=== PATIENT | male | born 1950 | race Hispanic/Latino ===

== ENCOUNTER 2020-06-25 06:16 | Day surgery (SDC) | payer OTHER ==
[2020-06-25 07:23] LABS: Basophils % (Auto) 0.6 % (0.0-1.8); Eosinophils # (Auto) 0.2 K/mm3 (0.0-0.4); Eosinophils % (Auto) 3.2 % (0.0-4.3); Hematocrit 44.5 % (35.5-45.6); Hemoglobin 15.3 gm/dl (11.8-15.2); Lymphocytes # (Auto) 1.1 K/mm3 (1.2-5.4); Mean Corpuscular HGB Conc 34 % (32-34); Mean Corpuscular Volume 101 fl (84-94); Monocytes # (Auto) 0.7 K/mm3 (0.0-0.8); Monocytes % (Auto) 12.3 % (0.0-7.3); Platelet Count 301 K/mm3 (140-440); Red Blood Count 4.42 M/mm3 (3.65-5.03); Red Cell Distribution Width 13.4 % (13.2-15.2)
[2020-06-25 07:32] LABS: INR 1.72 (0.87-1.13); Partial Thromboplastin Time 38.8 Sec. (24.2-36.6)
[2020-06-25 07:35] LABS: BUN/Creatinine Ratio 18; Blood Urea Nitrogen 16 mg/dL (9-20); Hemolysis Index 1
[2020-06-25] MEDS ORDERED: HEPARIN/NS 5000 UNIT/500ML 1,000 ML IR ONE ×2 (07:58→09:29)
[2020-06-25] MEDS ORDERED: MIDAZOLAM 2 MG/2 ML INJ ONE (07:59)
[2020-06-25] MEDS ORDERED: SODIUM CHLORIDE 0.9% 500 ML 500 ML IV SCH (08:00)
[2020-06-25] MEDS ORDERED: SODIUM CHLORIDE 0.9% 0 ML ONE (08:10)
[2020-06-25] MEDS ORDERED: HEPARIN/NS 5000 UNIT/500ML 500 ML IR ONE (08:11)
[2020-06-25] MEDS ORDERED: WATER FOR INJ Sterile (PF) 0 ML ONE (08:11)
[2020-06-25] MEDS: fentaNYL 100 MCG/2 ML INJ ONE ×3 (08:46→10:06)
[2020-06-25] MEDS: LIDOCAINE (2%) 20 MG/1 ML VIAL 20 ML MDV INFILTRATI ONE ×4 (08:51→10:15)
[2020-06-25] MEDS ORDERED: CLINDAMYCIN 300 MG/50 mL 300 MG/50 ML BAG IV SCH ×2 (09:00→15:00)
[2020-06-25] MEDS: MIDAZOLAM 5 MG/5 ML INJ MDV IV ONE ×3 (09:13→10:59)
[2020-06-25] MEDS: HEPARIN 10,000 UNITS/10 ML VIAL ONE ×3 (09:16→10:48)
[2020-06-25] MEDS ORDERED: fentaNYL 100 MCG/2 ML INJ ONE (10:05)
[2020-06-25] MEDS ORDERED: KETOROLAC 30 MG/1 ML INJ ONE (11:12)
--- NOTE | 2020-06-25 11:32 | Short Stay Summary ---
Short Stay Documentation Date of service: 06/25/20 - History Principal diagnosis: Bilateral lower extremity DVT left greater than right H&P: obtained from office - Allergies and Medications Current Medications: Allergies bee venom protein (honey bee) Allergy (Severe, Verified 06/25/20 06:58) Anaphylaxis Penicillins Allergy (Severe, Verified 06/25/20 06:57) Angioedema warfarin [From Coumadin] Allergy (Severe, Verified 06/25/20 06:58) Swelling Home Medications Medication Instructions Recorded Confirmed Last Taken Type Clindamycin [Clindamycin CAP] 300 mg PO PRN PRN 06/25/20 06/25/20 04/24/20 His tory Rivaroxaban [Xarelto] 15 mg PO BID 06/25/20 06/25/20 06/25/20 05:30 History 15 mg Active Medications Sodium Chloride (Nacl 0.9% 500 Ml) 500 mls @ 50 mls/hr IV DIRECT SAVANNA Last Admin: 06/25/20 08:16 Dose: 50 mls/hr Documented by: Clindamycin HCl (Cleocin 300 Mg/50 Ml) 300 mg in 50 mls @ 100 mls/hr IV Q6H SAVANNA; Protocol - Brief post op/procedure progress note Date of procedure: 06/25/20 Pre-op diagnosis: Bilateral lower extremity DVT acute on chronic left greater than right with Post-op diagnosis: same Procedure: Bilateral lower extremity venogram, left lower extremity thrombectomy, bilateral lower extremity intravascular ultrasound, bilateral lower extremity venous stent placement Anesthesia: local Surgeon: BEN HATHAWAY Pathology: none Condition: stable - Disposition Condition at discharge: Good Disposition: [id number] TO HOME OR SELFCARE Short Stay Discharge Plan Activity: advance as tolerated Weight Bearing Status: Weight Bear as Tolerated Diet: regular Wound: keep clean and dry, per your surgeon's advice Follow up with: GALEN DAVIES [Other] - 7 Days
--- NOTE | 2020-06-25 11:47 | Operative Report ---
Operative Report Operative Report: Exam: Bilateral lower extremity venogram, left lower extremity thrombectomy, bilateral lower extremity intravascular ultrasound, bilateral lower extremity venoplasty with stent placement Clinical indication: Patient with a history of chronic iliofemoral DVT bilaterally in 2019 with acute on chronic left lower extremity DVT resulting in bilateral lower extremity swelling left greater than right and pain left greater than right Date: 06/25/2020 Procedure: Following an explanation of the risks, benefits and alternatives; written informed consent was obtained. The patient was brought to the angiographic suite and placed in supine position on the examination table. Initial ultrasound evaluation of his legs demonstrated patent femoral veins bilaterally. The patient's bilateral groin and legs were prepped and draped in the usual sterile fashion. 1% lidocaine was used for anesthesia. Under ultrasound guidance, the left proximal femoral vein was cannulated with a 7 cm 18-gauge needle. A 0.035 guidewire was advanced to the level of the inguinal ligament however there was a significant clot burden and the wire would not pass further. The needle was removed and the outer portion of a microsheath placed. Access to the proximal right femoral vein was obtained in a similar fashion. The right femoral vein was noted to be diminutive. A 0.035 guidewire was advanced through the needle on the right into the IVC. The needle was exchanged for a 5 [place] sheath. A Glidewire was then manipulated through the outer portion of the micro sheath placed in the left femoral vein. The guidewire was manipulated into the IVC. The micro sheath was removed and a vertebral catheter advanced over the g uidewire. The vertebral catheter was advanced to the IVC. Contrast is injected to document intravenous positioning. The guidewire was reinserted and the vertebral catheter exchanged for a 5 [place] sheath. Contrast injected through the sheath demonstrates significant thrombus in the proximal femoral vein, common femoral vein and external iliac vein. There is significant stenosis in the distal common iliac vein and proximal external iliac vein on the left. An Omni Flush catheter was advanced through the sheath on the right. The bifurcation was then crossed using the Omni Flush catheter and guidewire. Contrast was injected at multiple locations. The Omni Flush catheter was advanced into the femoral vein on the left. Additional angiography was performed which demonstrates true luminal positioning. Other guidewire was then advanced into the common femoral vein distally. The Omni Flush catheter was removed. The 5 [place] sheath was removed. Initially, a 7 [place] 45 cm sheath was placed however, for additional length a 7 [place] 90 cm sheath was placed with the tip of the sheath in the left proximal femoral vein. A variety of guidewires and catheters were utilized in an attempt to go more distally in the femoral vein however, thrombus at this point is chronic and occlusive. The decision was made therefore to cannulate the posterior tibial vein. The patient's lower leg was prepped and draped in the usual sterile fashion. Additional lidocaine was used for anesthesia. The posterior tibial vein was cannulated using a 7 cm 21-gauge needle. A 0.018 guidewire was advanced proximally. The needle was removed and a microsheath placed. Contrast was injected through the micro sheath following the removal of the wire which demonstrates appropriate positioning. There is extensive collateral formation along the entire lower leg with no apparent drainage of the lower leg into the deep venous system. A 0.035 guidewire was advanced through the micro sheath the micro sheath was then exchanged for a vertebral catheter and the vertebral catheter was used to probe over the guidewire multiple conduits in an attempt to find a pathway to the deep venous system without success. Ultimately, this access was abandoned. With the sheath placed in the common femoral vein from right to left, the guidewire was advanced into the femoral vein as distally as possible. Angiopla sty was performed through the right sheath using a 10 mm balloon in an attempt to macerate some of the chronic thrombus. The sheath was then withdrawn proximally. Both sheaths were then exchanged over the guidewires for 10 [place] sheaths. Contrast injected through the sheath demonstrated a similar appearance of the deep venous system. There is significant narrowing involving the external iliac veins bilaterally of approximately 80 to 90% and significant narrowing of the distal common iliac veins bilaterally of approximately 80 to 90%. Intravascular ultrasound was then performed first through the right sheath followed by the left sheath. This demonstrates 80% stenosis involving the distal common iliac vein on the right and 80% stenosis involving the external iliac vein on the right. On the left, there is a 90% stenosis involving the distal common iliac vein and an additional 80% stenosis involving the proximal left external iliac vein separately. Intravascular ultrasound demonstrates what appears to be chronic thrombus in the external iliac vein and common femoral vein. A decision was made to macerate the thrombus using a 12 mm balloon. Maceration was performed in the external iliac vein and common femoral vein. An 8 [place] guide cath was then used in attempt to scrape some of the chronic thrombus from the wall. The thrombus had a fibrotic appearance on externalization. Some luminal gain was acquired. Given the significant degree of stenosis and symptoms, decision was made to place stents across the lesions. A 16 mm x 160 mm Venovo stent was advanced through the right sheath. A 16 mm x 160 mm Venovo stent was advanced through the left sheath. The stents were deployed in kissing fashion to extend from the common iliac veins and of the external iliac veins bilaterally. On the right, the stent covered both lesions. On the left, the stent covered the proximal lesion in the common iliac vein. An additional 14 mm x 140 mm Venovo stent was advanced through the left sheath and deployed to extend the previously placed stent from the external iliac vein to the bifurcation of femoral vein and profunda. On the left, the stent was seated using a 14 mm balloon. Post venoplasty and stent placement and thrombectomy imaging demonstrated brisk flow from both legs into the IVC. There is reduction of the stenosis and exclusion of the thrombus given its chronicity with residual less than 10% stenosis noted at all locations. At this point, the sheaths were removed and hemostasis achieved using manual compression in both groins and posterior tibial vein. The patient tolerated the procedure well. There were no immediate post procedure complications. Conscious sedation was performed under the guidance of radiologic nursing. Continuous cardiopulmonary monitoring was utilized. Impression: 1) Bilateral lower extremity venogram demonstrating extensive chronic and a minimal amount of acute thrombus involving the left external iliac vein distally. Prior to imaging, there is brisk clearance of contrast from the left lower extremity as well as the right. There are high-grade stenoses involving the distal common iliac vein and separate high-grade stenoses involving the proximal external iliac vein bilaterally. 2) Maceration of the thrombus and thrombectomy using a guide cath to remove some of the chronic thrombus on the left in the external iliac vein and common femoral vein. 3) Intravascular ultrasound of the IVC, bilateral common iliac veins, bilateral external iliac veins, bilateral common femoral veins demonstrating 80% stenosis involving the distal right common iliac vein, 80% stenosis involving the right external iliac vein, 90% stenosis involving the distal left common iliac vein and a separate 80% stenosis involving the proximal left external iliac vein. Additionally, chronic thrombus was noted in the external iliac vein and common femoral vein on the left. 4) Treatment of the stenosis and exclusion of the thrombus with placement of kissing 16 mm x 160 mm stents extending from the IVC into the external iliac veins bilaterally with elongation of the stent on the left to extend from the external iliac vein into the common femoral vein. Residual less than 10% stenosis and brisk flow on both sides. Given the abnormalities of the external iliac vein and common iliac veins and the close approximation of the arterial system, patient may benefit from a CTA of the abdomen and pelvis.
[2020-06-25 13:38] VITALS: BP 143/80
== END 2020-06-25 14:10 | disposition home or self-care (01) ==
LOC: CATHLABREC 06:16
PROVIDERS: ATTEND Radiology Diagnostic Radiology
DX: I87.1 Compression of vein (principal); M19.90 Unspecified osteoarthritis, unspecified site; Z86.718 Personal history of other venous thrombosis and embolism; Z88.0 Allergy status to penicillin; Z88.8 Allergy status to other drugs, medicaments and biological substances; Z79.899 Other long term (current) drug therapy; Z87.891 Personal history of nicotine dependence; Z87.442 Personal history of urinary calculi; Z98.890 Other specified postprocedural states; Z82.49 Family history of ischemic heart disease and other diseases of the circulatory system
CPT/HCPCS: 36415; 37187; 37238; 37239; 37252; 37253; 75822; 76937; 80048; 85025; 85610; 85730; 99156; 99157; C1725; C1753; C1769; C1876; C1887; C1894; J1644; J1885; J2250; J3010; J7040; Q9967